=== PATIENT | female | born 1970 | race Caucasian/White ===

== ENCOUNTER → 2016-10-13 | Outpatient (CLI) | payer SELFPAY ==
--- NOTE | 2016-10-13 15:50 | CT ---
EXAMINATION TYPE: CT heart w calcium score DATE OF EXAM: 10/13/2016 COMPARISON: NONE HISTORY: Screening for cardiovascular disorder. 213.9. History of hypercholesterolemia per patient. CT DLP: 57.1 mGycm Automated exposure control for dose reduction was used. CT CALCIUM SCORING Coronary calcium is a marker for plaque (fatty deposits) in a blood vessel or atherosclerosis (harden ing of the arteries). The presence and amount of calcium detected in a coronary artery by the CT sca n, indicates the presence and amount of atherosclerotic plaque. These calcium deposits appear years before the development of heart disease symptoms such as chest pain and shortness of breath. A calcium score is computed for each of the coronary arteries based upon the volume and density of th e calcium deposits. This can be referred to as your calcified plaque burden. It does not correspond directly to the percentage of narrowing in the artery but does correlate with the severity of the un derlying coronary atherosclerosis. PROCEDURE TECHNIQUE - Prospective Gating was used. Slice thickness: 3mm. Density threshold (HU): 130, Pixel threshold: 3, Algorithm: discrete. RESULTS Region: LM Calcium Score ([place]): 1 Volume (mm3): 2 Mass (g): 0.26 Region: RCA Calcium Score ([place]): 0 Volume (mm3): 0 Mass (g): 0 Region: LAD Calcium Score ([place]): 0 Volume (mm3): 0 Mass (g): 0 Region: CX Calcium Score ([place]at[place]): 1 Volume (mm3): 2 Mass (g): 0.31 Total: Calcium Score ([place]atston): 2 Volume (mm3): 4 Mass (g): 0.57 TOTAL CALCIUM SCORE: 2 OTHER: Dominant right coronary artery noted. No Suspicious extra coronary findings are seen. IMPRESSION: Calcium Score: 1-10 Implication: Minimal identifable plaque. Risk of Coronary Artery Disease: Very unlikely, less than 10%.
== END | disposition home or self-care (01) ==
LOC: RADCTMAIN 15:12
PROVIDERS: ATTEND Family Medicine
DX: E78.5 Hyperlipidemia, unspecified (principal)
CPT/HCPCS: 75571

== ENCOUNTER 2019-03-30 07:02 | Day surgery (SDC) | payer OTHER ==
[2019-03-29 08:35] VITALS: BMI 32.4
[~2019-03-30 07:02] MED LIST: DEXAMETHASONE SOD PHOSPHATE 10 MG/ML 1 ML VIAL IV ONE; LACTATED RINGERS 1,000 ML IV SCH; LIDOCAINE 1% 20 ML VIAL (10MG/ML) FOR IV START INTRADERMA PRN; ONDANSETRON 4 MG/2 ML VIAL IVP ONE
[2019-03-30] MEDS ORDERED: LACTATED RINGERS 1,000 ML IV ONE (07:08)
[2019-03-30 07:17] VITALS: TEMP 97.9
[2019-03-30 07:23] LABS: Glucose,Whole Blood 148 mg/dL (75-99)
[2019-03-30] MEDS ORDERED: LIDOCAINE 1% INJ 10MG/ML (20 ML MDV) ONE (07:51)
[2019-03-30] MEDS ORDERED: PROPOFOL 10 MG/ML 20 ML VIAL IV ONE (07:51)
--- NOTE | 2019-03-30 07:56 | P.GSHP ---
History of Present Illness H&P Date: 03/30/19 Chief Complaint: Hemorrhoids, GI bleed This a 48-year-old female who presents today for colonoscopy. Patient issues with hemorrhoids and rectal bleeding. Past Medical History Past Medical History: Diabetes Mellitus, Hyperlipidemia, Hypertension Additional Past Medical History / Comment(s): "abdominal discomfort/nervous stomach/nausea",hemorrhoids History of Any Multi-Drug Resistant Organisms: None Reported Past Surgical History: Hysterectomy, Orthopedic Surgery Additional Past Surgical History / Comment(s): knee repair Past Anesthesia/Blood Transfusion Reactions: No Reported Reaction Additional Past Anesthesia/Blood Transfusion Reaction / Comment(s): no hx blood transfusion Smoking Status: Former smoker - Past Family History Mother Family Medical History: Cancer Additional Family Medical History / Comment(s): lung CA,pt's mom's father had colon CA. Father Family Medical History: Cancer Additional Family Medical History / Comment(s): kidney CA Medications and Allergies Home Medications Medication Instructions Recorded Confirmed Type Atorvastatin [Lipitor] 10 mg PO Q7D 03/29/19 03/30/19 History Cholecalciferol [Vitamin D3 (25 1,000 unit PO DAILY 03/29/19 03/29/19 History Mcg = 1000 Iu)] Cyanocobalamin (Vitamin B-12) 1,000 mcg PO DAILY 03/29/19 03/29/19 History [Vitamin B-12] Gemfibrozil [Lopid] 600 mg PO DAILY 03/29/19 03/30/19 History Hydrochlorothiazide [Hydrodiuril] 25 mg PO DAILY 03/29/19 03/30/19 History Multivitamins, Thera [Multivitamin 1 tab PO DAILY 03/29/19 03/29/19 History (formulary)] [place]-3 Fatty Acids/Fish Oil [Fish 1,200 mg PO DAILY 03/29/19 03/29/19 History Oil 1,000 mg Softgel] Pioglitazone [Actos] 45 mg PO DAILY 03/29/19 03/30/19 History Allergies Allergy/AdvReac Type Severity Reaction Status Date / Time No Known Allergies Allergy Verified 03/30/19 07:18 Surgical - Exam Vital Signs Temp Pulse Resp BP Pulse Ox 97.9 F 95 14 158/79 99 03/30/19 07:15 03/30/19 07:15 03/30/19 07:15 03/30/19 07:15 03/30/19 07:15 - General well developed, well nourished - Eyes PERRL - ENT normal pinna - Neck no masses - Respiratory normal expansion - Cardiovascular Rhythm: regular - Abdomen Abdomen: soft, non tender Results - Labs Abnormal Lab Results - Last 24 Hours (Table) 03/30/19 Range/Units 07:21 POC Glucose (mg/dL) 148 H (75-99) mg/dL Assessment and Plan Assessment: GI bleed Hemorrhoids We'll perform colonoscopy.
--- NOTE | 2019-03-30 08:08 | P.OP ---
Date of Procedure: 03/30/19 Preoperative Diagnosis: Internal hemorrhoids Postoperative Diagnosis: Anal fissure Internal hemorrhoids Normal colon Procedure(s) Performed: Colonoscopy Anesthesia: MAC Surgeon: Omid Lambert Pathology: none sent Condition: stable Disposition: PACU Description of Procedure: The patient's placed on the endoscopy table in the lateral position. She received IV sedation. Digital rectal exam was performed which revealed a anal fissure and mild internal hemorrhoids. The flexible colonoscope was then placed patient anus and passed throughout the entire colon. The ileocecal valve was visualized. The cecum, ascending, transverse and descending colon appeared normal. The sigmoid colon and rectum appeared normal. The scope was then retroflexed in the ectomy and small amount internal hemorrhoids were seen. Scope was withdrawn through the anus and the anal fissure was seen. Scope was then withdrawn for patient.
[2019-03-30 08:34] VITALS: BP 121/68; PULSE 64; RESP 18
== END 2019-03-30 08:45 | disposition home or self-care (01) ==
LOC: ORWHC2ENDO 07:02
PROVIDERS: ATTEND Surgery
DX: K60.2 Anal fissure, unspecified (principal); K64.8 Other hemorrhoids; K92.2 Gastrointestinal hemorrhage, unspecified; E11.9 Type 2 diabetes mellitus without complications; E78.5 Hyperlipidemia, unspecified; I10 Essential (primary) hypertension; Z90.710 Acquired absence of both cervix and uterus; Z87.891 Personal history of nicotine dependence; Z80.1 Family history of malignant neoplasm of trachea, bronchus and lung; Z80.0 Family history of malignant neoplasm of digestive organs; Z80.51 Family history of malignant neoplasm of kidney; Z79.899 Other long term (current) drug therapy; Z79.84 Long term (current) use of oral hypoglycemic drugs
CPT/HCPCS: 45378; J2001; J2704

== ENCOUNTER → 2019-11-16 | Outpatient (CLI) | payer OTHER ==
--- NOTE | 2019-11-16 08:09 | MR ---
EXAMINATION TYPE: MR knee RT wo con DATE OF EXAM: 11/16/2019 COMPARISON: None HISTORY: 49-year-old female Right knee pain, Locking and swelling. The patient reports that cortisone helped but seems to be wearing off. TECHNIQUE: Multiplanar, multisequence imaging of the right knee is performed without IV contrast. FINDINGS: ACL, PCL, MCL, and LCL complex appear intact. Oblique tear involving the posterior horn of the medial meniscus extending to the junction with the m eniscal body. Very mild superficial cartilage irregularity within the medial compartment. Lateral meniscus is intact. Lateral compartment articular cartilage volume is maintained. Patellofemoral compartment articular cartilage is maintained. 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 Extensor mechanism is intact. Moderate knee joint effusion. No Landis's cyst. Some mild edema within the lateral gastrocnemius musculature. Normal popliteal artery anatomy in muscle bulk. No suspicious bone marrow replacement. IMPRESSION: 1. Oblique tear involving the posterior horn of the medial meniscus extending to the junction with th e meniscal body. 2. Very mild superficial cartilage fraying within the medial compartment. 3. Moderate knee joint effusion. 4. Mild edema within the lateral gastrocnemius could be reactive to altered biomechanics or could rep resent a mild muscle strain.
== END | disposition home or self-care (01) ==
LOC: RADMRIMAIN 07:20
PROVIDERS: ATTEND Orthopaedic Surgery
DX: S83.241A Other tear of medial meniscus, current injury, right knee, initial encounter (principal); M25.461 Effusion, right knee; R60.9 Edema, unspecified

== ENCOUNTER → 2019-11-27 | Outpatient (CLI) | payer OTHER | END | disposition home or self-care (01) | LOC: LABPAT 12:28 | PROVIDERS: ATTEND Orthopaedic Surgery | DX: Z01.818 Encounter for other preprocedural examination (principal); M23.91 Unspecified internal derangement of right knee | CPT/HCPCS: 93005 ==

== ENCOUNTER 2019-12-07 09:07 | Day surgery (SDC) | payer OTHER ==
[2019-12-04 16:01] VITALS: BMI 33.6
--- NOTE | 2019-12-06 13:59 | HP ---
HISTORY AND PHYSICAL DATE OF SURGERY: 12/07/2019 Mojgan Garcia is a 49-year-old patient seen with progressive right knee pain. We discussed options regarding treatment. She elected to proceed with arthroscopy. Consent was obtained. PAST MEDICAL HISTORY: Hypertension, hyperlipidemia, uvf-gpiyahf-gioprlvem diabetes. PAST SURGICAL HISTORY: Left knee arthroscopy, hysterectomy. MEDICATIONS: Atorvastatin, gemfibrozil, hydrochlorothiazide. ALLERGIES: None. SOCIAL HISTORY: She denies tobacco use. PHYSICAL EVALUATION OF THE RIGHT KNEE: Range of motion is -2/3-115. Mild effusion. Tenderness medial joint line. Positive medial Urban's. Ligaments are stable. Hip rotation is without pain. Distal neurovascular exam is intact. RADIOGRAPHS OF THE RIGHT KNEE: Reveal mild osteoarthritic changes. A right knee MRI revealed medial meniscal tear and a moderate joint effusion. IMPRESSION: 1. Internal derangement, right knee with medial meniscal tear. 2. Hypertension. 3. Hyperlipidemia. 4. [id number] diabetes. PLAN: Right knee arthroscopy with partial meniscectomy, partial synovectomy and debridement. MMODL / IJN: [id number] /
[~2019-12-07 09:07] MED LIST changes: +LIDOCAINE 1% (10MG/ML) FOR IV START INTRADERMA PRN; -LIDOCAINE 1% 20 ML VIAL (10MG/ML) FOR IV START INTRADERMA PRN
[2019-12-07] MEDS ORDERED: ONDANSETRON 4 MG/2 ML VIAL ONE (09:39)
[2019-12-07 09:52] LABS: Glucose,Whole Blood 125 mg/dL (75-99)
[2019-12-07] MEDS ORDERED: PROPOFOL 10 MG/ML 20 ML VIAL IV ONE (10:23)
[2019-12-07] MEDS ORDERED: LIDOCAINE 1% INJ 10MG/ML (20 ML MDV) ONE (10:23)
[2019-12-07] MEDS ORDERED: fentaNYL (PF) 50 MCG/ML 2 ML AMP ONE (10:23)
[2019-12-07] MEDS ORDERED: MIDAZOLAM 2 MG/2 ML VIAL ONE (10:23)
[2019-12-07] MEDS ORDERED: BUPIVACAINE (PF) 0.25% 30 ML VIAL INTRAARTIC ONE (10:51)
[2019-12-07 11:08] VITALS: TEMP 97.8
--- NOTE | 2019-12-07 11:08 | P.OP ---
Date of Procedure: 12/07/19 Preoperative Diagnosis: Internal derangement right knee Postoperative Diagnosis: 1. Tear medial meniscus right knee 2. Reactive synovitis medial, lateral and suprapatellar compartments right knee Procedure(s) Performed: 1. Arthroscopic partial medial meniscectomy right knee 2. Arthroscopic partial synovectomy medial, lateral and suprapatellar compartments right knee Anesthesia: LUCYA, local Surgeon: Navarro Li Estimated Blood Loss (ml): 5 Pathology: none sent Condition: stable Disposition: PACU Indications for Procedure: 49-year-old patient seen with progressive right knee pain. After treatment options were discussed, she elected to proceed with arthroscopy. Operative Findings: See description of procedure Description of Procedure: Patient was taken to the operative suite. Patient underwent a general an esthetic by the department of anesthesia. Patient was given preoperative antibiotics. The right lower extremity was placed in a well-padded arthroscopic leg macario. The right leg was prepped and draped in the normal sterile orthopedic fashion. A lateral parapatellar and suprapatellar incision was made. Trochars were inserted. Arthroscopy was initiated. Suprapatellar pouch revealed diffuse thick reactive synovitis. The patellofemoral joint appeared to articulate congruently. There was grade 1 chondromalacia. The scope was guided into the medial gutter. No loose bodies or plica were identified The scope was then guided into the medial compartment. A medial parapatellar incision was made. Trocar inserted followed by probe. There was a complex tear posterior horn medial meniscus. There were mild grade 1 chondromalacia changes the medial compartment. There was thick reactive synovitis anteriorly. I performed a partial medial meniscectomy. I performed a partial synovectomy. The residual meniscus was stable. There was good decompression of the synovitis. Scope and probe were then guided into the intercondylar notch. Cruciates were identified, probed and found to be stable. The scope and probe were then guided into lateral compartment. Lateral meniscus was found to be stable. There was no significant chondromalacia. There was thick reactive synovitis anteriorly. I performed a partial synovectomy. There was good decompression of synovitis. The scope was in guided back into the suprapatellar compartment. I into the suprapatellar compartment. I debrided some piecemeal fragments of meniscus I encountered. I performed a partial synovectomy. There was good decompression of synovitis. I took one more look on the entire knee, no residual debris. Instruments were now removed from the joint. The joint was infiltrated with .25% Marcaine. Steri-Strips were applied to the portal sites. Sterile dressings were applied. The patient was placed into a BOUCHRA hose. No tourniquet was utilized. The patient was awakened, transferred to a bed and taken to recovery stable satisfactory condition.
[2019-12-07] MEDS: HYDROmorphone 0.5 MG/0.5 ML SYRINGE IVP PRN ×2 (11:20→11:26)
[2019-12-07 11:26] LABS: Glucose,Whole Blood 121 mg/dL (75-99)
[2019-12-07 11:49] VITALS: RESP 16
[2019-12-07] MEDS ORDERED: HYDROcodone/APAP 5-325MG 1 EACH TAB ONE (12:07)
[2019-12-07] MEDS ORDERED: HYDROcodone/APAP 5-325MG 1 EACH TAB PO ONE (12:08)
[2019-12-07 12:23] VITALS: BP 121/64; PULSE 78
== END 2019-12-07 12:50 | disposition home or self-care (01) ==
LOC: OR 09:07
PROVIDERS: ATTEND Orthopaedic Surgery
DX: M23.221 Derangement of posterior horn of medial meniscus due to old tear or injury, right knee (principal); M65.861 Other synovitis and tenosynovitis, right lower leg; M22.41 Chondromalacia patellae, right knee; I10 Essential (primary) hypertension; E78.5 Hyperlipidemia, unspecified; E11.9 Type 2 diabetes mellitus without complications; Z79.899 Other long term (current) drug therapy; Z90.710 Acquired absence of both cervix and uterus
CPT/HCPCS: 29881; J2250; J1100; J0690; J2405; J2001; J3010; J2704; J1170